=== PATIENT | male | born 1950 | race Caucasian/White ===

== ENCOUNTER → 2022-01-03 | Outpatient (CLI) | payer MEDICARE, BC | LOC: CT 15:38 | PROVIDERS: ATTEND Family Medicine | DX: Z12.2 Encounter for screening for malignant neoplasm of respiratory organs (principal); F17.200 Nicotine dependence, unspecified, uncomplicated | CPT/HCPCS: 71250 ==

== ENCOUNTER → 2024-11-08 | Outpatient (REF) | payer MEDICARE, BC ==
[~2024-11-08] MED LIST: METOPROLOL TART50 MG PO; PLAVIX75 MG PO; SIMVASTATIN40 MG PO
== END ==
LOC: CT 13:43
PROVIDERS: ATTEND Family Medicine
DX: Z12.2 Encounter for screening for malignant neoplasm of respiratory organs (principal); R91.8 Other nonspecific abnormal finding of lung field; F17.200 Nicotine dependence, unspecified, uncomplicated
CPT/HCPCS: 71250

== ENCOUNTER 2024-11-19 19:35 | Emergency (ER) | payer MEDICARE, BC ==
[~2024-11-19] VITALS: Ht 170.2 cm; Wt 74.6 kg
[2024-11-19] MEDS ORDERED: HEPARIN SOD/DEXTROSE 5% 25000 UNIT/250 ML BAG IV SCH ×2 (22:15→22:30)
[2024-11-19 22:47] LABS: PROTHROMBIN TIME 13.8 seconds (11.9-14.5)
[2024-11-19 22:56] LABS: ALBUMIN 3.5 g/dL (3.5-5.0); ALBUMIN/GLOBULIN RATIO 1.1 (0.8-2.0); ANION GAP 18.1 mmol/L (8-16); BILIRUBIN,TOTAL 0.7 mg/dL (0.2-1.2); CALCIUM 9.3 mg/dL (8.4-10.2); CREATININE, SERUM 1.08 mg/dL (0.72-1.25); POTASSIUM 4.1 mmol/L (3.5-5.1); TOTAL PROTEIN 6.6 g/dL (6.5-8.1)
[2024-11-19 22:58] LABS: BASOPHILS # (AUTO) 0.1 (0.0-0.1); BASOPHILS % 0.7 % (0.0-1.0); EOSINOPHILS # (AUTO) 0.2 (0.0-0.4); HEMOGLOBIN 14.1 g/dL (14.0-18.0); LYMPHOCYTES # (AUTO) 2.1 (1.0-3.2); LYMPHOCYTES % 16.9 % (18.0-39.1); MEAN CORPUSCULAR HEMOGLOBIN 31.5 pg (28-32); MEAN CORPUSCULAR VOLUME 98.4 fL (81-99); MONOCYTES # (AUTO) 0.9 (0.2-0.8); MONOCYTES % 7.6 % (4.4-11.3); NEUTROPHILS # (AUTO) 8.8 (2.1-6.9); NEUTROPHILS % 72.3 % (38.7-80.0); PLATELET COUNT 215 x10e3/uL (140-360); RED BLOOD COUNT 4.47 x10e6/uL (4.3-5.7); RED CELL DISTRIBUTION WIDTH 13.1 % (11.7-14.4); WHITE BLOOD COUNT 12.11 x10e3/uL (4.8-10.8)
[2024-11-19 23:05] VITALS: PULSE 92; RESP 16; TEMP 98.4; O2SAT 94
[2024-11-19] MEDS: HEPARIN 25,000 UNIT/D5W 250ML 250 ML IV SCH (23:15)
[2024-11-19] MEDS: HEPARIN SOD (PORCINE) 5,000 UNIT/ML VIAL IV ONE (23:15)
[2024-11-19] MEDS ORDERED: HEPARIN 25,000 UNIT/D5W 250ML 250 ML IV ONE (23:15)
== END 2024-11-19 23:35 | disposition other institution (70) ==
LOC: ER 19:45
DX: M79.604 Pain in right leg (principal); I70.201 Unspecified atherosclerosis of native arteries of extremities, right leg; Z95.5 Presence of coronary angioplasty implant and graft
CPT/HCPCS: 36415; 80053; 85025; 85610; 85730; 93926; 93971; 99284; J1644